=== PATIENT | female | born 1955 | race Caucasian/White ===

== ENCOUNTER → 2019-05-21 | Outpatient (CLI) | payer MEDICARE | END | disposition home or self-care (01) | LOC: CFH 09:15 | PROVIDERS: ATTEND Family Medicine | DX: R92.2 Inconclusive mammogram (principal); Z80.3 Family history of malignant neoplasm of breast | CPT/HCPCS: 76642; 77065 ==

== ENCOUNTER → 2019-08-06 | Outpatient (CLI) | payer MEDICARE | END | disposition home or self-care (01) | LOC: CFH 14:11 | PROVIDERS: ATTEND Family Medicine | DX: N64.89 Other specified disorders of breast (principal); N64.4 Mastodynia | CPT/HCPCS: 76642; 77065; G0279 ==